=== PATIENT | male | born 1980 | race Caucasian/White ===

== ENCOUNTER 2017-09-19 09:47 | Emergency (ER) | payer BC, OTHER ==
[2017-09-19] MEDS ORDERED: Glucagon* 1 MG VIAL IM ONE (10:12)
[2017-09-19] MEDS ORDERED: Sucralfate TAB* 1 GM PO ONE (10:59)
--- NOTE | 2017-09-19 11:20 | ED ---
Throat Pain/Nasal Congestion - HPI Summary HPI Summary: Patient is an otherwise healthy 37-year-old male presenting to the ED with complaint of esophageal food bolus since last evening. He states he choked on a piece of steak last evening, was able to vomit and spit the piece up at the time but still has been unable to swallow any solid food since that time. He states he did not sleep well due to the stuck feeling and having to spit frequently throughout the night. He comes in today to the ED stating the steak appears to still be lodged in the throat. This is never happened before. Denies any other complaints. - History of Current Complaint Chief Complaint: EDForeignBodyEsophag Time Seen by Provider: 09/19/17 09:59 Hx Obtained From: Patient, Family/Church Musician Onset/Duration: Sudden Onset Severity: Mild Associated Signs And Symptoms: Positive: Dysphagia, FB Sensation, Drooling - only slightly - Epiglottits Risk Factors Epiglottis Risk Factors: Drooling - Allergies/Home Medications Allergies/Adverse Reactions: Allergies Allergy/AdvReac Type Severity Reaction Status Date / Time No Known Allergies Allergy Verified 09/19/17 09:59 Home Medications: Home Medications Fish Oil 1,000 mg Capsule 1,000 mg PO DAILY 09/19/17 [History Confirmed 09/19/17 ] Lisinopril 10 mg PO DAILY 09/19/17 [History Confirmed 09/19/17] Multivitamin 1 tab PO DAILY 09/19/17 [History Confirmed 09/19/17] Niacin Flush Free 500 mg Cap 500 mg PO DAILY 09/19/17 [History Confirmed ] PMH/Surg Hx/FS Hx/Imm Hx Previously Healthy: Yes - Immunization History Hx Pertussis Vaccination: No Immunizations Up to Date: Yes Infectious Disease History: No Infectious Disease History: Denies: Traveled Outside the [place] in Last 30 Days - Social History Occupation: Employed Full-time Lives: With Family Alcohol Use: Rare Substance Use Type: Reports: None Smoking Status (MU): Never Smoked Tobacco Review of Systems Constitutional: Negative Negative: Fever, Fatigue, Skin Diaphoresis Negative: Photophobia, Blurred Vision Positive: Sore Throat Cardiovascular: Negative Respiratory: Negative Positive: Vomiting. Negative: Abdominal Pain, Diarrhea, Nausea Genitourinary: Negative Positive: no symptoms reported, see HPI Skin: Negative Neurological: Negative All Other Systems Reviewed And Are Negative: Yes Physical Exam Triage Information Reviewed: Yes Vital Signs On Initial Exam: Initial Vitals Temp Pulse Resp BP Pulse Ox 98.1 F 65 16 132/84 100 09/19/17 09:59 09/19/17 09:59 09/19/17 09:59 09/19/17 09:59 09/19/17 09:59 Vital Signs Reviewed: Yes Appearance: Positive: Well-Appearing, Well-Nourished Skin: Positive: Warm, Skin Color Reflects Adequate Perfusion Head/Face: Positive: Normal Head/Face Inspection Eyes: Positive: EOMI, DELMA, Conjunctiva Clear ENT: Positive: Pharynx normal, Uvula midline. Negative: Nasal congestion, Nasal drainage, Tonsillar swelling, Tonsillar exudate, Hoarse voice, Sinus tenderness Neck: Positive: Supple, No Lymphadenopathy Respiratory/Lung Sounds: Positive: Clear to Auscultation, Breath Sounds Present Cardiovascular: Positive: RRR, Pulses are Symmetrical in both Upper and Lower Extremities Musculoskeletal: Positive: Normal, Strength/ROM Intact Neurological: Positive: Sensory/Motor Intact, Alert, Oriented to Person Place, Time, Speech Normal Psychiatric: Positive: Normal, Affect/Mood Appropriate AVPU Assessment: Alert Diagnostics - Vital Signs Vital Signs Temp Pulse Resp BP Pulse Ox 09/19/17 10:18 64 17 97 09/19/17 09:59 98.1 F 65 16 132/84 100 - Laboratory Result Diagrams: 09/19/17 12:25 09/19/17 12:25 Lab Statement: Any lab studies that have been ordered have been reviewed, and results considered in the medical decision making process. EENT Course/Dx - Course Course Of Treatment: On physical examination, there does not appear to be in obvious food bolus in the posterior pharynx. He states he is able to get very small amount of liquids down, but will often have to spit most of the liquid in his mouth out due to inability to swallow. He appears in no acute distress on arrival. He is not leaning forward or vomiting. Glucagon 1 mg IM given. Carafate mixed with water given. He was not able to tolerate, stating some of the carafate went down, but then he vomited it up approximately 3 minutes later. Continues to be able to swallow saliva, but slowly. Discussed case with Dr. Leyva. Dr. Leyva suggests IV, chest x-ray and lab work and will come in to scope patient. Patient made aware and is okay with this plan. - Diagnoses Provider Diagnoses: Esophageal stricture Discharge - Sign-Out/Discharge Documenting (check all that apply): Discharge/Admit/Transfer Signing out patient TO: Byron Leyva - Discharge Plan Condition: Stable Disposition: HOME Referrals: Renae Jaffe NP [Primary Care Provider] - - Billing Disposition and Condition Condition: STABLE Disposition: Home
[2017-09-19 12:33] LABS: ABS Basophils 0.1 10^3/ul (0-0.2); ABS Eosinophils 0.2 10^3/ul (0-0.6); ABS Lymphocytes 1.2 10^3/ul (1.0-4.8); ABS Neutrophils 12.3 10^3/ul (1.5-7.7); ABS Nucleated RBC 0 10^3/ul; Eosinophil % 1.4 % (0-6); Hematocrit 41 % (42-52); Hemoglobin 14.6 g/dl (14.0-18.0); Lymphocyte % 8.1 % (25-47); Mean Corpuscular HGB Conc 36 g/dl (31-36); Mean Corpuscular Hemoglobin 33 pg (27-31); Mean Corpuscular Volume 92 fL (80-94); Mean Platelet Volume 8.8 um3 (7.4-10.4); Nucleated Red Blood Cells % 0; Platelet Count 186 10^3/ul (150-450); Red Cell Distribution Width 13 % (10.5-15); White Blood Count 14.7 10^3/ul (3.5-10.8)
[2017-09-19 12:41] LABS: INR 0.94 (0.77-1.02)
[2017-09-19 12:49] LABS: EGFR Non-African American 79.5 (>60)
--- NOTE | 2017-09-19 13:29 | RAD ---
INDICATION: Food foreign body COMPARISON: None TECHNIQUE: PA and lateral dual-energy views were obtained. FINDINGS: Bones/Soft Tissues: There are no acute bony findings. Cardiomediastinal: The cardiomediastinal silhouette is normal. Lungs: There are no infiltrates. Pleura: There are no pleural effusions. Other: There is a paucity of gas in the visualized abdomen IMPRESSION: NO ACTIVE DISEASE.
[2017-09-19] MEDS ORDERED: fentaNYL* 50 MCG/ML 2 ML VIAL (100 MCG VIAL) ONE ×2 (13:33→17:28)
[2017-09-19] MEDS ORDERED: Midazolam* 1 MG/ML 10 ML VIAL (10 MG) ONE (13:33)
[2017-09-19 16:55] VITALS: BP 125/75
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
--- NOTE | 2017-09-20 03:04 | PRO ---
DATE: 09/19/17 - EMERGENCY DEPT. REFERRING PHYSICIAN: Renae Jaffe NP, [facility].* PROCEDURE: Upper gastrointestinal endoscopy and removal of impacted meat with biopsy of esophagus at 35 cm and CLOtest from gastric greater curvature. INDICATION: This 37-year-old man has had a piece of steak stuck for about 18 hours. He has not had any fever. With his present, his situation was discussed and informed consent reviewed. ENDOSCOPIST: Dr. Leyva. MEDICATIONS: Midazolam 10, fentanyl 100. FINDINGS: He is a minimally overweight, red-haired young man in no distress. EGD: Larynx - symmetric limited views. Esophagus - easily entered and mucosa is normal in the upper esophagus. There has been a lot of retained saliva and a large piece of meat in the lower esophagus. It was clearly stuck. Blunt advancement was not easily obtained. A snare was passed and took off about one third of the impaction which remains stuck in the EG junction. It was withdrawn through the mouth. The patient was reintubated. At this point, the piece of meat popped through into the gastric fundus. There was an open EG junction at 39.5 to 40 with a mild ring and a medium sized hiatal hernia. There were no inflamed erosions in the esophagus. There did appear to be furrowing in the esophagus and during withdrawal biopsies were taken x3 from about 34 to 35. Stomach - generally normal mucosa in the cardia, fundus, body, and antrum. There was a smooth nodule along the greater curvature of proximal antrum consistent with a pancreatic rest. It was small, smooth, uniform and had no worrisome features whatsoever. Only a small patch of gastric fundus was not viewed secondary to fragments of the meat bolus. No erosions were seen. A CLOtest taken. Duodenum - the pylorus, bulb, and second portions were normal. IMPRESSION: 1. Esophageal furrowing - biopsies pending. 2. Minimal EG junction stricture - omeprazole 20 mg for a week and then further plans to be discussed. 3. [id number] hiatal hernia. 4. Meat bolus - 90% of the causation of today's event was the lack of chewing of a large piece of meat. [id number]/[facility] #: [id number] [facility]
== END 2017-09-19 16:53 | disposition home or self-care (01) ==
LOC: ED 09:47
DX: T18.128A Food in esophagus causing other injury, initial encounter (principal); X58.XXXA Exposure to other specified factors, initial encounter; Y92.9 Unspecified place or not applicable; K22.2 Esophageal obstruction; K44.9 Diaphragmatic hernia without obstruction or gangrene
CPT/HCPCS: 36415; 71046; 80053; 83605; 85025; 85610; 87077; 88305; 96372; 99156; 99157; 99284; A9270-GY; J1610; J2250; J3010

== ENCOUNTER 2017-12-07 01:38 | Emergency (ER) | payer BC ==
[2017-12-07] MEDS ORDERED: Pantoprazole IV* 40 MG IV ONE (01:56)
[2017-12-07] MEDS ORDERED: NS 0.9% 1000 ML* 1,000 ML IV ONE (01:56)
[2017-12-07] MEDS ORDERED: Metoclopramide IV* 5 MG/ML 2 ML VIAL IV SLOW PU ONE (01:57)
--- NOTE | 2017-12-07 02:00 | ED ---
Abdominal Pain/Male - HPI Summary HPI Summary: A 37 y/o male accompanied by family ELOISA presents to ED c/o lower abdominal pain reaching 5/10 in severity. In the ED room, the patient has a pulse of 52 BPM, O2 saturation of 95% and blood pressure of 120/69. As per triage, "Pt, who is being followed by Dr Leyva, states that he was woken up out of a sound sleep with lower abdominal pain, that he attributed to acid reflux. Pt states that he induced vomiting and felt relief, but that the pain and nausea is now returning". According to the patient, he has been experiencing lower abdominal pain since 1300 this afternoon. The pain is coupled with vomiting and diarrhea. He noted that he is in much discomfort rather than pain. Patiient takes Prilozec and Lisinopril home. - History of Current Complaint Chief Complaint: EDAbdPain Stated Complaint: ABD PAIN Time Seen by Provider: 12/07/17 01:40 Hx Obtained From: Patient Onset/Duration: Sudden Onset, Lasting Hours, Still Present Timing: Constant Severity Initially: Moderate Severity Currently: Moderate Pain Intensity: 5 Pain Scale Used: 0-10 Numeric Location: Other - Lower Radiates: No Aggravating Factor(s): Nothing Alleviating Factor(s): Nothing Associated Signs And Symptoms: Positive: Vomiting, Diarrhea - Allergies/Home Medications Allergies/Adverse Reactions: Allergies Allergy/AdvReac Type Severity Reaction Status Date / Time No Known Allergies Allergy Verified 09/19/17 09:59 Home Medications: Home Medications Omeprazole 20 mg PO DAILY 12/07/17 [History Confirmed 12/07/17] PMH/Surg Hx/FS Hx/Imm Hx Endocrine/Hematology History: Denies: Hx Diabetes Cardiovascular History: Reports: Hx Hypertension - Surgical History Surgery Procedure, Year, and Place: As per mother and father, no prior surgeries noted. Infectious Disease History: No Infectious Disease History: Denies: Traveled Outside the [place] in Last 30 Days - Family History Known Family History: Positive: Hypertension Negative: Diabetes - Social History Alcohol Use: Rare Substance Use Type: Reports: None Smoking Status (MU): Never Smoked Tobacco Review of Systems Negative: Fever Positive: Abdominal Pain, Vomiting, Diarrhea All Other Systems Reviewed And Are Negative: Yes Physical Exam - Summary Physical Exam Summary: VITAL SIGNS: Reviewed. GENERAL: Patient is a well-developed and nourished male who is lying comfortable in the stretcher. Patient is not in any acute respiratory distress. HEAD AND FACE: No signs of trauma. No ecchymosis, hematomas or skull depressions. No sinus tenderness. EYES: PERRLA, EOMI x 2, No injected conjunctiva, no nystagmus. EARS: Hearing grossly intact. Ear canals and tympanic membranes are within normal limits. MOUTH: Oropharynx within normal limits. NECK: Supple, trachea is midline, no adenopathy, no JVD, no carotid bruit, no c- spine tenderness, neck with full ROM. CHEST: Symmetric, no tenderness at palpation LUNGS: Clear to auscultation bilaterally. No wheezing or crackles. CVS: Regular rate and rhythm, S1 and S2 present, no murmurs or gallops appreciated. ABDOMEN: Soft, diffuse abdominal tenderness. No signs of distention. No rebound no guarding, and no masses palpated. Bowel sounds are normal. EXTREMITIES: FROM in all major joints, no edema, no cyanosis or clubbing. NEURO: Alert and oriented x 3. No acute neurological deficits. Speech is normal and follows commands. SKIN: Dry and warm Triage Information Reviewed: Yes Vital Signs On Initial Exam: Initial Vitals Temp Pulse Resp BP Pulse Ox 97.8 F 53 18 120/69 96 12/07/17 01:47 12/07/17 01:47 12/07/17 01:47 12/07/17 01:47 12/07/17 01:47 Vital Signs Reviewed: Yes Diagnostics - Vital Signs Vital Signs Temp Pulse Resp BP Pulse Ox 12/07/17 01:47 97.8 F 53 18 120/69 96 - Laboratory Result Diagrams: 12/07/17 02:25 12/07/17 02:25 Lab Statement: Any lab studies that have been ordered have been reviewed, and results considered in the medical decision making process. - CT CT A/P CT Interpretation Completed By: Radiologist - 1. There are prominent loops of small bowel noted, findings may be seen with enteritis. 2. There is a small gallstone noted within the gallbladder. Right upper quadrant sonography may be performed for further evaluation. ED physician reviewed this radiology report. Re-Evaluation - Re-Evaluation First Eval Re-Evaluation Time: 05:08 Comment: Reviewed CAT scan results with patient. Abdominal Pain Fem Course/Dx - Course Course Of Treatment: A 37 y/o male accompanied by family BIBA presents to ED c/ o lower abdominal pain reaching 5/10 in severity. In the ED room, the patient has a pulse of 52 BPM, O2 saturation of 95% and blood pressure of 120/69. A CT A /P revealed 1. There are prominent loops of small bowel noted, findings may be seen with enteritis. 2. There is a small gallstone noted within the gallbladder. Right upper quadrant sonography may be performed for further evaluation. In the ED course, the patient recieved. Reglan, Omnipaque, Protonix and IV fluids. During reevaluation, CAT scan results were discussed with patient, in which it was recommended that patient should follow up with PCP for an US to r/o gallstones. Patient will be discharged with a diagnosis of abdominal pain. Patient is to follow up with PCP in 1-2 days for an US to r/o gallstones. Patient is agreeable with this plan. - Diagnoses Provider Diagnoses: Abdominal pain Discharge - Sign-Out/Discharge Documenting (check all that apply): Patient Departure - DISCHARGE - Discharge Plan Condition: Stable Disposition: HOME Patient Education Materials: Abdominal Pain (ED), Acute Nausea and Vomiting (ED ) Referrals: Renae Jaffe NP [Primary Care Provider] - 2 Days Additional Instructions: FOLLOW UP WITH PRIMARY CARE FOR ULTRASOUND TO RULE OUT GALLSTONES. RETURN TO ED FOR ANY NEW OR WORSENING SYMPTOMS. - Attestation Statements Document Initiated by Scribe: Yes Documenting Scribe: Christopher Kinney Provider For Whom Scribe is Documenting (Include Credential): Eduar Medina MD Scribe Attestation: Chrsitopher Tee, scribed for Eduar Medina MD on 12/07/17 at 0516.
[2017-12-07 02:34] LABS: ABS Basophils 0.1 10^3/ul (0-0.2); ABS Eosinophils 0.2 10^3/ul (0-0.6); ABS Lymphocytes 2.4 10^3/ul (1.0-4.8); ABS Monocytes 1.3 10^3/ul (0-0.8); ABS Neutrophils 10.4 10^3/ul (1.5-7.7); ABS Nucleated RBC 0 10^3/ul; Eosinophil % 1.6 % (0-6); Hematocrit 42 % (42-52); Hemoglobin 14.8 g/dl (14.0-18.0); Lymphocyte % 16.5 % (25-47); Mean Corpuscular HGB Conc 35 g/dl (31-36); Mean Corpuscular Hemoglobin 33 pg (27-31); Mean Corpuscular Volume 93 fL (80-94); Mean Platelet Volume 9.2 um3 (7.4-10.4); Nucleated Red Blood Cells % 0; Platelet Count 203 10^3/ul (150-450); Red Blood Count 4.56 10^6/ul (4.00-5.40); Red Cell Distribution Width 13 % (10.5-15); White Blood Count 14.4 10^3/ul (3.5-10.8)
[2017-12-07 02:42] LABS: INR 0.92 (0.77-1.02)
[2017-12-07] MEDS ORDERED: Iohexol 300* (CONTRAST) 10 ML SDV IV ONE (02:57)
--- NOTE | 2017-12-07 04:39 | RAD ---
EXAM: CT Abdomen and Pelvis With Intravenous Contrast CLINICAL HISTORY: 37 years old, male; Pain; Abdominal pain; Localized; Lower; Additional info: Pt states that he was woken up out of a sound sleep with lower abdominal pain, that he attributed to acid reflux. Pt states that he induced vomiting and felt relief, but that the pain and nausea is now returning. TECHNIQUE: Axial computed tomography images of the abdomen and pelvis with intravenous contrast. All CT scans at this facility use at least one of these dose optimization techniques: automated exposure control; mA and/or kV adjustment per patient size (includes targeted exams where dose is matched to clinical indication); or iterative reconstruction. Coronal and sagittal reformatted images were created and reviewed. CONTRAST: 131 mL of OMNI 300 administered intravenously. COMPARISON: No relevant prior studies available. FINDINGS: Lung bases: Unremarkable. No mass. No consolidation. ABDOMEN: Liver: Unremarkable. No mass. Gallbladder and bile ducts: There is a small gallstone noted within the gallbladder. No ductal dilation. Pancreas: Unremarkable. No mass. No ductal dilation. Spleen: Unremarkable. No splenomegaly. Adrenals: Unremarkable. No mass. Kidneys and ureters: Unremarkable. No solid mass. No hydronephrosis. Stomach and bowel: There are prominent loops of small bowel noted, findings may be seen with enteritis. No obstruction. PELVIS: Appendix: The appendix is visualized and is unremarkable. Bladder: Unremarkable. No mass. Reproductive: Unremarkable as visualized. ABDOMEN and PELVIS: Intraperitoneal space: Unremarkable. No free air. No significant fluid collection. Bones/joints: No acute fracture. No dislocation. Soft tissues: Unremarkable. Vasculature: Unremarkable. No abdominal aortic aneurysm. Lymph nodes: Unremarkable. No enlarged lymph nodes. IMPRESSION: 1. There are prominent loops of small bowel noted, findings may be seen with enteritis. 2. There is a small gallstone noted within the gallbladder. Right upper quadrant sonography may be performed for further evaluation.
[2017-12-07 05:05] LABS: Urine Appearance Clear; Urine Blood Negative (Negative); Urine Color Yellow; Urine Ketones Negative (Negative); Urine Protein Negative (Negative); Urine Specific Gravity 1.044 (1.010-1.030); Urine Urobilinogen Negative (Negative)
[2017-12-07 05:35] VITALS: BP 89/51
== END 2017-12-07 05:37 | disposition home or self-care (01) ==
LOC: ED 01:38
DX: R11.10 Vomiting, unspecified (principal); R19.7 Diarrhea, unspecified; R10.30 Lower abdominal pain, unspecified; I10 Essential (primary) hypertension
CPT/HCPCS: 36415; 74177; 80053; 81003; 82150; 83690; 85025; 85610; 85730; 86140; 96374; 96375; 99283; J2765; Q9967

== ENCOUNTER 2018-04-04 17:01 | Emergency (ER) | payer BC ==
[2018-04-04 17:36] VITALS: BP 158/91
--- NOTE | 2018-04-04 17:48 | UC ---
Throat Pain/Nasal Slava HPI - HPI Summary HPI Summary: 37-year-old male comes to clinic with a chief complaint of upper respiratory tract infection symptoms for about 2 and half weeks. He's had initially runny nose sore throat cough chest congestion. Over time the chest congestion is clear. Sinuses now her giving him pressure he's got yellow rhinorrhea. Timblin warm today did not check if he had a fever but he might half. Cbji-aib-abklymc medications help the symptoms but then everything gets worse again. - History of Current Complaint Chief Complaint: UCGeneralIllness Stated Complaint: RESP COMPLAINT Time Seen by Provider: 04/04/18 17:41 Pain Intensity: 0 - Allergies/Home Medications Allergies/Adverse Reactions: Allergies Allergy/AdvReac Type Severity Reaction Status Date / Time No Known Allergies Allergy Verified 04/04/18 17:36 PMH/Surg Hx/FS Hx/Imm Hx Previously Healthy: Yes - Surgical History Surgical History: Yes Surgery Procedure, Year, and Place: [facility] Jan 2018 - Family History Known Family History: Positive: Hypertension Negative: Diabetes - Social History Alcohol Use: Rare Substance Use Type: None Smoking Status (MU): Never Smoked Tobacco Review of Systems All Other Systems Reviewed And Are Negative: Yes Constitutional: Positive: Fever Skin: Positive: Negative Eyes: Positive: Negative ENT: Positive: Nasal Discharge, Sinus Congestion, Sinus Pain/Tenderness Respiratory: Positive: Cough Cardiovascular: Positive: Negative Gastrointestinal: Positive: Negative Motor: Positive: Negative Neurovascular: Positive: Negative Musculoskeletal: Positive: Negative Neurological: Positive: Negative Psychological: Positive: Negative Is Patient Immunocompromised?: No Physical Exam Triage Information Reviewed: Yes Appearance: No Pain Distress, Well-Nourished, Ill-Appearing - MILD Vital Signs: Initial Vital Signs Temp 99.5 F 04/04/18 17:32 Pulse 97 04/04/18 17:32 Resp 18 04/04/18 17:32 BP 158/91 04/04/18 17:32 Pulse Ox 100 04/04/18 17:32 Vital Signs Reviewed: Yes Eye Exam: Normal Eyes: Positive: Conjunctiva Clear ENT: Positive: Pharyngeal erythema, Nasal congestion, Nasal drainage, TMs normal Neck exam: Normal Neck: Positive: Supple Respiratory: Positive: Lungs clear, Normal breath sounds, No respiratory distress Cardiovascular: Positive: RRR Musculoskeletal Exam: Normal Musculoskeletal: Positive: Strength Intact, ROM Intact Neurological Exam: Normal Neurological: Positive: Alert, Muscle Tone Normal Psychological Exam: Normal Psychological: Positive: Age Appropriate Behavior Skin Exam: Normal Throat Pain/Nasal Course/Dx - Differential Dx/Diagnosis Provider Diagnosis: Sinusitis Discharge - Sign-Out/Discharge Documenting (check all that apply): Patient Departure All imaging exams completed and their final reports reviewed: No Studies - Discharge Plan Condition: Stable Disposition: HOME Prescriptions: Amoxicillin/Clavulanate TAB* [Augmentin TAB 875*] 875 mg PO BID #20 tab Patient Education Materials: Sinusitis (ED) Referrals: Renae Jaffe NP [Primary Care Provider] - Additional Instructions: FOLLOW UP WITH YOUR DOCTOR IF NOT COMPLETELY IMPROVED. GET RECHECKED FOR ANY WORSENING OF YOUR CONDITION OR QUESTIONS OR CONCERNS. - Billing Disposition and Condition Condition: STABLE Disposition: Home
== END 2018-04-04 18:01 | disposition home or self-care (01) ==
LOC: UCEAST 17:01
DX: J32.9 Chronic sinusitis, unspecified (principal); J02.9 Acute pharyngitis, unspecified
CPT/HCPCS: 99212; G0463

== ENCOUNTER 2018-12-31 09:24 | Emergency (ER) | payer BC ==
[2018-12-31] MEDS ORDERED: NS 0.9% 1000 ML** 1,000 ML IV ONE (09:27)
--- NOTE | 2018-12-31 09:42 | ED ---
Syncope/Near Syncope - HPI Summary HPI Summary: The patient is a 38 y/o M presenting to [facility] accompanied by with a chief complaint of sudden onset syncopal event with loss of consciousness this morning. He reports that he had woken up to his dogs fighting, and he attempted to break them up, but he cut his hand, although he isnt sure if it was on a tooth or a toenail. He then went to get a paper towel from the kitchen, when he walked only about 15 feet and crumpled to the floor, per . He states that he had loss of consciousness with the event as he did not remember falling to the floor, where he landed on his buttocks but did hit his head. He additionally c/o diaphoresis and skin changes of various colors that has since resolved. He denies any headache, dizziness, shortness of breath, chest pain, or palpitations prior to or after the event. Currently, he feels back at baseline with pain rated at 3/10 in severity. Unsure if UTD on tetanus, but he notes he had surgery last year. PMHx: HTN, cholecystectomy. Nonsmoker, rare EtOH , no substance use. Medications reviewed. Allergies noted. - History Of Current Complaint Time Seen by Provider: 12/31/18 09:25 Hx Obtained From: Patient Onset/Duration: Sudden Onset, Lasting Minutes, Resolved Timing: Minutes Context: Witnessed Activity At Onset: Exertion - ambulating Associated Head Trauma: No Aggravating Factor(s): Nothing Alleviating Factor(s): Spontaneous Resolution Associated Signs And Symptoms: Other - Positive: loss of consciousness, laceration to the left hand, diaphoresis, skin changes of various colors ( resolved). Negative: headache, dizziness, shortness of breath, chest pain, palpitations - Allergies/Home Medications Allergies/Adverse Reactions: Allergies Allergy/AdvReac Type Severity Reaction Status Date / Time No Known Allergies Allergy Verified 04/04/18 17:36 PMH/Surg Hx/FS Hx/Imm Hx Endocrine/Hematology History: Denies: Hx Diabetes, Hx Thyroid Disease Cardiovascular History: Reports: Hx Hypertension Denies: Hx Hypercholesterolemia Respiratory History: Denies: Hx Asthma, Hx Chronic Obstructive Pulmonary Disease (COPD) GI History: Reports: Hx Gall Bladder Disease - cholecystectomy Denies: Hx Ulcer History: Denies: Hx Renal Disease - Surgical History Surgical History: Yes Surgery Procedure, Year, and Place: [facility] Jan 2018 Infectious Disease History: No Infectious Disease History: Denies: Hx Hepatitis, Hx Human Immunodeficiency Virus (HIV), Traveled Outside the [place] in Last 30 Days - Family History Known Family History: Positive: Hypertension Negative: Diabetes - Social History Alcohol Use: Rare Hx Substance Use: No Substance Use Type: Reports: None Hx Tobacco Use: No Smoking Status (MU): Never Smoked Tobacco Review of Systems Positive: Skin Diaphoresis, Other - variations in skin color (resolved) Negative: Palpitations, Chest Pain Negative: Shortness Of Breath Positive: Other - laceration to the right hand Neurological: Other - Negative: dizziness Positive: Syncope - with LOC, hit head. Negative: Headache All Other Systems Reviewed And Are Negative: Yes Physical Exam - Summary Physical Exam Summary: VITAL SIGNS: Reviewed. GENERAL: Patient is a well-developed and nourished male who is lying comfortable in the stretcher. Patient is not in any acute respiratory distress. HEAD AND FACE: No signs of trauma. No ecchymosis, hematomas or skull depressions. No sinus tenderness. EYES: PERRLA, EOMI x 2, No injected conjunctiva, no nystagmus. No photophobia. EARS: Hearing grossly intact. Ear canals and tympanic membranes are within normal limits. MOUTH: Oropharynx within normal limits. NECK: Supple, trachea is midline, no adenopathy, no JVD, no carotid bruit, no c- spine tenderness, neck with full ROM. No meningeal signs, no Kernig's or brudzinskis signs. CHEST: Symmetric, no tenderness at palpation. LUNGS: Clear to auscultation bilaterally. No wheezing or crackles. CVS: Regular rate and rhythm, S1 and S2 present, no murmurs or gallops appreciated. ABDOMEN: Soft, non-tender. No signs of distention. No rebound, no guarding, and no masses palpated. Bowel sounds are normal. EXTREMITIES: Small laceration on the right hand which is approximately 0.5 cm, FROM in all major joints, no edema, no cyanosis or clubbing. NEURO: Alert and oriented x 3. No acute neurological deficits. Speech is normal and follows commands. SKIN: Dry and warm. GCS: 15. Triage Information Reviewed: Yes Vital Signs On Initial Exam: Initial Vitals Temp Pulse Resp BP Pulse Ox 97.9 F 60 18 112/64 98 12/31/18 09:28 12/31/18 09:28 12/31/18 09:28 12/31/18 09:28 12/31/18 09:28 Vital Signs Reviewed: Yes - [place] Coma Scale Best Eye Response: 4 - Spontaneous Best Motor Response: 6 - Obeys Commands Best Verbal Response: 5 - Oriented Coma Scale Total: 15 Procedures - Sedation Patient Received Moderate/Deep Sedation with Procedure: No - Laceration/Wound Repair 1 Location: upper extremity - right hand Description: Linear Length, Depth and Shape: 0.5 cm Laceration/Wound Explored: clean Closure: [employer] Diagn[facility] - Vital Signs Vital Signs Temp Pulse Resp BP Pulse Ox 12/31/18 09:28 97.9 F 60 18 112/64 98 - Laboratory Result Diagrams: 12/31/18 10:02 12/31/18 10:02 Lab Statement: Any lab studies that have been ordered have been reviewed, and results considered in the medical decision making process. - Radiology Chest X-ray Radiology Interpretation Completed By: Radiologist Summary of Radiographic Findings: Impression: No evidence for acute intrathoracic disease. ED physician has reviewed this report. - CT Brain CT CT Interpretation Completed By: Radiologist Summary of CT Findings: Impression: No evidence for acute intrathoracic disease. ED physician has reviewed this report. - EKG 1040 Cardiac Rate: Bradycardia - 57 bpm EKG Rhythm: Sinus Bradycardia Summary of EKG Findings: EKG at 1040 reveals sinus bradycardia at 57 BPM. Normal axis. No ST elevations. ED physician has reviewed and interpreted this EKG. Re-Evaluation - Re-Evaluation First Eval Re-Evaluation Time: 10:46 Change: Unchanged Comment: We discussed all results and plan for discharge. Course/Dx Assessment/Plan: Patient is a 38 y/o M with chief complaint of syncopal episode with loss of consciousness, head to floor contact, diaphoresis, and skin color changes occurring this morning after sustaining a laceration the left hand without any headache, dizziness, shortness of breath, chest pain, or palpitations. Blood work without a significant abnormality except for creatinine 1.19, glucose 109, lactic acid 2.3, and troponin 0.00. Serum alcohol negative. Head CT impression: Negative unenhanced CT of the head. Chest x-ray impression: No evidence for acute intrathoracic disease. EKG: Sinus bradycardia at 57 bpm, no ST elevations. I believe that the patient had a vasovagal syncope. In the ED course the patient has remained stable. I gave the patient Augmentin since the patient had a small laceration in the right hand. At this time, it is unknown if it was the teeth of the dog that caused the laceration. Patient had tetanus vaccine a year ago. At this point, I discussed all the findings and test results with the patient. He was instructed to return to the emergency room immediately if any of the symptoms return or worsen. Patient understands and agrees. Neurological exam before discharge: Patient is alert and oriented x 3. No acute neurological deficits. Patient's vital signs are stable. Patient is to follow up with PCP in the next 2 3 days. They understand and agree. Plan of care was discussed with the patient and patient understands and agrees with the plan of care. All questions were answered at patient satisfaction. There were no further complaints or concerns. - Diagnoses Provider Diagnoses: Vasovagal episode, Laceration Discharge ED - Sign-Out/Discharge Documenting (check all that apply): Patient Departure - Patient will be discharged home. - Discharge Plan Condition: Good Disposition: HOME Prescriptions: Amoxicillin/Clavulanate TAB* [Augmentin TAB 875*] 875 mg PO BID #20 tab Patient Education Materials: Laceration (DC), Syncope (DC) Referrals: Renae Jaffe NP [Primary Care Provider] - 3 Days Additional Instructions: Please take medications as prescribed. Follow up with your primary care provider in 2-3 days. Return to the emergency department for any new or worsening symptoms. - Billing Disposition and Condition Condition: GOOD Disposition: Home - Attestation Statements Document Initiated by Bridget: Yes Documenting Scribe: Erin Webster Provider For Whom Bridget is Documenting (Include Credential): Dr. Brayan Painter MD Scribe Attestation: Erin Tee scribed for Dr. Brayan Painter MD on 01/01/19 at 0902. Scribe Documentation Reviewed: Yes Provider Attestation: The documentation as recorded by the Erin clark accurately reflects the service I personally performed and the decisions made by me, Dr. Brayan Painter MD Status of Scribe Document: Viewed
[2018-12-31 10:12] LABS: ABS Eosinophils 0.2 10^3/ul (0-0.6); ABS Lymphocytes 1.3 10^3/ul (1.0-4.8); ABS Monocytes 0.6 10^3/ul (0-0.8); Eosinophil % 3.2 %; Hematocrit 42 % (42-52); Hemoglobin 14.8 g/dL (14.0-18.0); Lymphocyte % 17.6 %; Mean Corpuscular HGB Conc 35 g/dL (31-36); Mean Corpuscular Hemoglobin 32 pg (27-31); Mean Corpuscular Volume 92 fL (80-94); Mean Platelet Volume 8.6 fL (7.4-10.4); Nucleated Red Blood Cells % 0.1; Platelet Count 189 10^3/uL (150-450); Red Cell Distribution Width 13 % (10-15); White Blood Count 7.1 10^3/uL (3.5-10.8)
[2018-12-31 10:26] LABS: ALT 25 U/L (7-52); AST 23 U/L (13-39); Albumin 4.7 g/dL (3.2-5.2); Alkaline Phosphatase 54 U/L (34-104); Anion Gap 6 mmol/L (2-11); BUN/Creatinine Ratio 13.4 (8-20); Blood Urea Nitrogen 16 mg/dL (6-24); CO2 Carbon Dioxide 28 mmol/L (22-32); Calcium 9.6 mg/dL (8.6-10.3); Chloride 106 mmol/L (101-111); Creatine Kinase 133 U/L (10-223); EGFR African American 82.8 (>60); EGFR Non-African American 68.4 (>60); Globulin 2.4 g/dL (2-4); Glucose 109 mg/dL (70-100); Potassium 4.5 mmol/L (3.5-5.0); Sodium 140 mmol/L (135-145); Total Protein 7.1 g/dL (6.4-8.9)
[2018-12-31 10:30] LABS: Alcohol < 10 mg/dL (<10)
[2018-12-31 10:38] VITALS: BP 116/76
[2018-12-31] MEDS ORDERED: Amoxicillin/Clavulanate TAB* 875 MG PO ONE (10:44)
[2018-12-31 10:45] LABS: TSH (Thyroid Stimulating Horm) 2.26 mcIU/mL (0.34-5.60)
== END 2018-12-31 10:57 | disposition home or self-care (01) ==
LOC: ED 09:24
DX: R55 Syncope and collapse (principal); S61.412A Laceration without foreign body of left hand, initial encounter; W19.XXXA Unspecified fall, initial encounter; Y92.000 Kitchen of unspecified non-institutional (private) residence as the place of occurrence of the external cause; I10 Essential (primary) hypertension; Z90.49 Acquired absence of other specified parts of digestive tract; Z79.899 Other long term (current) drug therapy
CPT/HCPCS: 12002; 36415; 70450; 71046; 80053; 80320; 82550; 83605; 83735; 83880; 84443; 84484; 85025; 93005; 96360; 99282; A9270-GY; G0480

== ENCOUNTER 2019-06-27 21:51 | Emergency (ER) | payer BC ==
--- NOTE | 2019-06-27 22:34 | ED ---
Respiratory - HPI Summary HPI Summary: 38 year old M presenting to [facility] with a chief complaint of shortness of breath which he describes as feeling like he cannot catch his breath or take a complete breath since 13:00 this afternoon while playing with his kids outside, worse since laying down for bed. Patient also reports intermittent chest discomfort which he describes as a tightness. The patient rates the pain 0/10 in severity. Patient denies any fever, syncope, dizziness, lightheadedness, or cough. Medication list reviewed. Allergy list reviewed. - History of Current Complaint Chief Complaint: EDShortnessOfBreath Stated Complaint: SOB PER PT Time Seen by Provider: 06/27/19 22:07 Hx Obtained From: Patient Onset/Duration: Lasting Hours Timing: Constant Current Severity: None Pain Intensity: 0 Associated Signs and Symptoms: Negative - Fever, syncope, dizziness, lightheadedness, cough, Chest Pain - Discomfort - Allergy/Home Medications Allergies/Adverse Reactions: Allergies Allergy/AdvReac Type Severity Reaction Status Date / Time No Known Allergies Allergy Verified 06/27/19 22:19 Home Medications: Home Medications Multivitamin [Multiple Vitamins] 1 tab PO DAILY WITH MEAL 09/19/17 [History Confirmed 06/27/19] Omeg3/Epa/Dha/Fish Oil/Flax/E [Thera Tears Nutrition Capsule] 1 cap PO DAILY [History Confirmed 06/27/19] Omeprazole 40 mg PO DAILY WITH MEAL 12/07/17 [History Confirmed 06/27/19] amLODIPine TAB* [Norvasc 5 mg TAB*] 20 mg PO DAILY 06/27/19 [History Confirmed 06/27/19] PMH/Surg Hx/FS Hx/Imm Hx Endocrine/Hematology History: Denies: Hx Diabetes, Hx Thyroid Disease Cardiovascular History: Reports: Hx Hypertension Denies: Hx Hypercholesterolemia Respiratory History: Denies: Hx Asthma, Hx Chronic Obstructive Pulmonary Disease (COPD) GI History: Reports: Hx Gall Bladder Disease - cholecystectomy Denies: Hx Ulcer History: Denies: Hx Renal Disease - Surgical History Surgery Procedure, Year, and Place: [facility] Jan 2018 Infectious Disease History: No Infectious Disease History: Denies: Hx Hepatitis, Hx Human Immunodeficiency Virus (HIV), Traveled Outside the [place] in Last 30 Days - Family History Known Family History: Positive: Hypertension Negative: Diabetes - Social History Alcohol Use: None Hx Substance Use: No Substance Use Type: Reports: None Hx Tobacco Use: No Smoking Status (MU): Never Smoked Tobacco Review of Systems Negative: Fever Positive: Other - Chest discomfort Positive: Shortness Of Breath. Negative: Cough Neurological/Mental Status: Negative - Dizziness, lightheadedness Negative: Syncope All Other Systems Reviewed And Are Negative: Yes Physical Exam - Summary Physical Exam Summary: Appearance: Well-appearing, Well-nourished, lying in bed comfortably Skin: Warm, dry, no obvious rash Eyes: sclera anicteric, no conjunctival pallor HENT: mucous membranes moist, pharynx appears normal Neck: Supple, nontender Respiratory: Clear to auscultation, no signs of respiratory distress Cardiovascular: Normal S1, S2. No murmurs. Normal distal pulses in tibial and radial bilaterally. Abdomen: Soft, nontender, normal active bowel sounds present Musculoskeletal: Normal, Strength/ROM Intact Neurological: A&Ox3, awake and alert, mentation is normal, speech is fluent and appropriate Psychiatric: affect is normal, does not appear anxious or depressed Triage Information Reviewed: Yes Vital Signs On Initial Exam: Initial Vitals Temp Pulse Resp BP Pulse Ox 98.8 F 70 18 142/97 98 06/27/19 22:09 06/27/19 22:09 06/27/19 22:09 06/27/19 22:09 06/27/19 22:09 Vital Signs Reviewed: Yes Procedures - Sedation Patient Received Moderate/Deep Sedation with Procedure: No Diagnostics - Vital Signs Vital Signs Temp Pulse Resp BP Pulse Ox 06/27/19 22:09 98.8 F 70 18 142/97 98 - Laboratory Result Diagrams: 06/27/19 23:30 06/27/19 23:30 Lab Statement: Any lab studies that have been ordered have been reviewed, and results considered in the medical decision making process. - Radiology Chest x-ray Radiology Interpretation Completed By: ED Physician Summary of Radiographic Findings: No acute process. ED physician has reviewed and interpreted this report. - EKG 23:38 Cardiac Rate: Bradycardia - 58 BPM EKG Rhythm: Sinus Bradycardia Summary of EKG Findings: Otherwise normal EKG. ED physician has reviewed and interpreted this EKG. Disposition - Course Course Of Treatment: 38 year old M presenting to [facility] with a chief complaint of shortness of breath which he describes as feeling like he cannot catch his breath or take a complete breath since 13:00 this afternoon while playing with his kids outside, worse since laying down for bed. Patient also reports intermittent chest discomfort which he describes as a tightness. Physical exam findings reveal no abnormalities. An EKG reveals sinus bradycardia at 58 BPM, otherwise normal EKG. CXR reveals, per ED physician, no acute process. Laboratory results with no significant abnormalities except for an Hct of 40, MCH of 33, creatinine of 1.20, and glucose of 109. Patient will be discharged with follow up from Dr. Jaffe. The patient is agreeable with this plan. - Diagnoses Provider Diagnoses: Atypical chest pain, Dyspnea Discharge ED - Sign-Out/Discharge Documenting (check all that apply): Patient Departure - Discharge Plan Condition: Good Disposition: HOME Patient Education Materials: Dyspnea (ED) Forms: COVID-19 Eval & Not Tested Referrals: Renae Jaffe NP [Primary Care Provider] - If Needed Additional Instructions: We did not find any evidence of a heart problem causing your symptoms. Your chest xray looks normal as do lab studies. This does not sound like a respiratory infection like COVID so we did not test you for that. Of course if you develop fever and worsening cough you should get tested. - Attestation Statements Document Initiated by Scribe: Yes Documenting Scribe: Radha Monroe Provider For Whom Scribe is Documenting (Include Credential): Andres Solitario MD Scribe Attestation: Radha Tee, scribed for Andres Solitario MD on 06/28/19 at 0101. Status of Scribe Document: Ready
--- OUTSIDE RECORDS SUMMARY | 2019-06-27 23:14 | XMS REPORT | Summary of Care ---
:1980 Author Organization [facility] Address [address] [facility] [address] [address] Care Team Providers Name Role Phone Other Unavailable Unavailable None, [place] Primary Care Provider Unavailable Reason for Visit Reason Comments Follow Up results from egd Encounter Details Date Type Department Care Team Description 05/05/2019 Office Visit Jose Alfredo Meade, Gastroesophageal reflux disease with esophagitis (Primary Dx); Gastroenterology/He Hannah Cassidy NP Family history of eosinophilic esophagitis; patology 1 [facility] Family history of Owen's esophagus [address] [facility] [address] [address] [place] [address] [phone] Allergies Active Allergy Reactions Severity Noted Date Comments Rubus Fruticosus Rash 02/20/2019 eosinophilic esophagitis Lisinopril Respiratory Reaction 02/20/2019 Cough Night-Time Cold-Flu Hives 05/04/2018 Relief Benzonatate-Methylpar Hives 05/04/2018 -Propylpar documented as of this encounter (statuses as of 05/05/2019) Medications Medication Sig Dispensed Refills Start Date End Date Status Mason-3 Fatty Acids Take by 0 Active (FISH OIL BURP-LESS) mouth. 1200 MG Oral Cap Multiple Take by 0 Active Vitamins-Minerals mouth. (MULTIVITAMIN ADULT) Oral Tab amLodipine (NORVASC) Take 1 Tab 90 Tab 3 02/27/2019 Active 10 MG Oral by mouth TabIndications: DAILY. Benign hypertension Omeprazole 40 MG Take 1 Cap 90 Cap 3 05/05/2019 Active Oral CAPSULE DELAYED by mouth RELEASE DAILY. Omeprazole 20 MG Take 1 Tab 0 05/05/2019 Discontinued Oral Tab EC by mouth DAILY. documented as of this encounter (statuses as of 05/05/2019) Active Problems Problem Noted Date [place] RUQ abdominal pain 12/24/2017 Overview: Added automatically from request for surgery [id number] Dyslipidemia 06/03/2015 Benign hypertension 05/06/2015 Hypertension Gastroesophageal reflux disease with esophagitis Overview: 04/25/19 - EGD showing esophagitis. On omeprazole documented as of this encounter (statuses as of 05/05/2019) Immunizations Name Administration Dates Next Due Influenza (IM) Preservative Free 03/19/2019 documented as of this encounter Social History Tobacco Use Types Packs/Day Years Used Date Never Smoker 0 Smokeless Tobacco: Never Used Alcohol Use Drinks/Week oz/Week Comments Yes 0 Standard drinks or equivalent 0.0 extremely rarely - once a year (1-2 beers) Sex Assigned at Date Recorded Not on file Job Start Date Occupation Industry Not on file Not on file Not on file Travel History Travel Start Travel End No recent travel history available. documented as of this encounter Last Filed Vital Signs Vital Sign Reading Time Taken Comments Blood Pressure 141/93 05/05/2019 8:04 AM EST Pulse 65 05/05/2019 8:04 AM EST Temperature - - Respiratory Rate - - Oxygen Saturation 97% 05/05/2019 8:04 AM EST Inhaled Oxygen Concentration - - Weight 109.8 kg (242 lb) 05/05/2019 8:04 AM EST Height 182.9 cm (6') 05/05/2019 8:04 AM EST Body Mass Index 32.82 05/05/2019 8:04 AM EST documented in this encounter Patient Instructions Patient InstructionsHannah Meade NP - 05/05/2019 8:00 AM EST1. Increase Omeprazole to 40mg once daily 2. Continue to be mindful of diet 3. See information below 4. Follow up in 1 month Patient Education Eosinophilic Esophagitis The Basics Written by the doctors and editors at [facility] What is eosinophilic esophagitis?Eosinophilic esophagitis is a condition that affects the esophagus, the tube that carries food from the mouth to the stomach (figure 1). This condition iscalled "EoE" for short. In EoE, the esophagus has cells called "eosinophils" in it. Eosinophils are allergy cells that are not normally found in the esophagus. Doctors don't know for sure what causes EoE. But they think it might be caused by allergies, especially food allergies. EoE sometimes runs in families. It can happen in both children and adults. What are the symptoms of eosinophilic esophagitis?Symptoms can be different, dependingon a person's age. Adults and teens usually have symptoms such as: Trouble swallowing This is the most common symptom. People usually have trouble swallowing solid foods. Some people have pain with swallowing or feel like the food gets stuck in their throat or chest. Chest or upper belly pain Burning in the chest (heartburn) that doesn't get better after taking medicine to treat heartburn Children usually have symptoms such as: Feeding problems, such as refusing to eat solid foods Nausea or vomiting Belly pain Is there a test for eosinophilic esophagitis?Yes. The test done most often to check for this condition is an upper endoscopy. During an upper endoscopy, a doctor (called a medical corps officer) puts a thin tube with a camera andlight on the end into your mouth and down into your esophagus (figure 2). He or she will look at thelining of the esophagus and take small samples of it. Another doctor will then look at the cells under a microscope to see if you have EoE. How is eosinophilic esophagitis treated?Treatment usually involves diet changes and medicines: Diet changes Your doctor might have you avoid foods that could be causing your symptoms.There are 3 main ways to do this. You can: ? Avoid the foods that most commonly cause EoE ? Avoid the foods you are allergic to To figure out the foods you are allergic to, you might need to see an business process lead (allergy doctor) and have tests. ? Go on a special liquid diet and avoid all solid foods To make sure you get the nutrition you need, your doctor might recommend that you work with a dietitian (food expert). After your symptoms improve, you will be able to add foods back into your diet. Medicines Doctors can use different medicines to treat EoE. One is called a "proton pumpinhibitor." This medicine is usually used to treat acid reflux, which is when acid that is normally in the stomach backs up into the esophagus. People with EoE sometimes have acid reflux, but this medicine can treat EoE, too. Other medicines include steroids, which help reduce inflammation. (These are not the same as the steroids some athletes take illegally.) Sometimes, steroids come in a device called an inhaler or a device called a "nebulizer," but you don 't breathe in the steroids the way you normally would with inhaler medicines. Instead, you allow the medicine to accumulate in your mouth and then you swallow. Other times, steroids come as a liquid or pill. In some people, EoE leads to a condition called an esophageal stricture, which is a narrowing of theesophagus. The main treatment for an esophageal stricture in people who do not improve with medicines is a procedure to widen the esophagus, called "dilation." This procedure is done during endoscopy. All topics are updated as new evidence becomes available and our peer review process is complete. This topic retrieved from [employer] on: Jan 31, 2019. Topic 73137 Version 7.0 Release: 27.4.5 - C27.318 [employer]. and/or its affiliates.All rights reserved. figure 1: Upper digestive tract The upper digestive tract includes the esophagus(the tube that connects the mouth to the stomach), the stomach, and the duodenum (the first part of the small intestine). Graphic 91320 Version 6.0 figure 2: Upper endoscopy During an upper endoscopy, you lie down and the doctor puts a thin tube with a camera and light on the end (called an endoscope) into your mouth and down into your esophagus, stomach, and duodenum (thefirst part of your small intestine). The camera sends pictures from inside your body to a televisionscreen. That way , your doctor can see the inside of your esophagus, stomach, and duodenum. Graphic 78633 Version 4.0 Consumer Information Use and Disclaimer This information is not specific medical advice and does not replace information you receive from your health care provider. This is only a brief summary of general information. It does NOT include allinformation about conditions, illnesses, injuries, tests, procedures, treatments, therapies, discharge instructions or life-style choices that may apply to you. You must talk with your health care provider for complete information about your health and treatment options. This information should not beused to decide whether or not to accept your health care provider's advice, instructions or recommendations. Only your health care provider has the knowledge and training to provide advice that is right for you.The use of [employer] content is governed by the [employer] Terms of Use. 2019 [employer]. All rights reserved. Copyright 2019[employer]. and/or its affiliates.All rights reserved. documented in this encounter Progress Notes Hannah Meade NP - 05/05/2019 8:00 AM EST PATIENT: Collins Gillespie : 1980 DATE OF SERVICE: 05/05/2019 REFERRING PRACTITIONER: Self-Referred PRIMARY CARE PROVIDER: None, [place] CHIEF COMPLAINT: Chief Complaint Patient presents with Follow Up results from egd Subjective HISTORY OF PRESENT ILLNESS: Collins Gillespie is a 38-y.o. male who presents for a consultation for evaluation of gastroesophagealreflux disease. Onset was problem is longstanding, this episode began several months ago. Symptoms have been controlled since. Diagnosed previously: yes; a few years by EGD in the [facility] after he has a food impaction of the esophagus. At that time he was told he has EoE and was referred to an business process lead, he was only found to have one suspected allergy. Symptoms include: heartburn and upper abdominal discomfort in the evenings approx 50% of the time. He denies dysphagia. He has not lost weight. He denies melena, hematochezia, hematemesis, and coffee ground emesis. Aggravated by: large meals Alleviated by: proton pump inhibitors Associated signs and symptoms: none Evaluation to date: 03/2019 EGD positive for esophagitis, EoE vs reflux esophagitis on biopsy. Also of note food residue in gastric antrum Medical therapy in the past has included proton pump inhibitors. The patient denies: dysphagia, dynophagia, weight loss, bleeding, oropharynx esophageal manifestation symptoms. Past Medical History: Diagnosis Date Fracture of ankle, open ORIF 1999 Gastroesophageal reflux disease with esophagitis GERD (gastroesophageal reflux disease) Hernia of abdominal cavity Hyperlipidemia Hypertension Past Surgical History: Procedure Laterality Date LAPAROSCOPIC CHOLECYSTECTOMY N/A 01/27/2018 Procedure: LAPAROSCOPIC CHOLECYSTECTOMY; Surgeon: Ronnie Caputo MD; Location : [facility] OR; Laterality: N/A; OTHER REPAIR OF ANKLE Left 1999 Family History Problem Relation Age of Onset Arthritis Mother Hypertension Mother Hypertension Father No Known Problems Brother No Known Problems Brother Cancer Other uncle w/ liver cancer Cancer Maternal Grandmother breast No Known Problems Maternal Grandfather Emphysema Paternal Grandmother COPD Paternal Grandmother Psychiatry Paternal Grandfather suicide Current Outpatient Medications Medication Sig amLodipine (NORVASC) 10 MG Oral Tab Take 1 Tab by mouth DAILY. Multiple Vitamins-Minerals (MULTIVITAMIN ADULT) Oral Tab Take by mouth. Mason-3 Fatty Acids (FISH OIL BURP-LESS) 1200 MG Oral Cap Take by mouth. Omeprazole 40 MG Oral CAPSULE DELAYED RELEASE Take 1 Cap by mouth DAILY. No current facility-administered medications for this visit. Allergies Allergen Reactions Blackberry [Rubus Fruticosus] Rash eosinophilic esophagitis Lisinopril Respiratory Reaction Cough Nyquil Cold & [Night-Time Cold-Flu Relief] Hives Tessalon Perles [[id number]] Hives Social History Socioeconomic History Marital status: Spouse name: Not on file Number of children: Not on file Years of education: Not on file Highest education level: Not on file Occupational History Not on file Social Needs Financial resource strain: Not on file Food insecurity Worry: Not on file Inability: Not on file Transportation needs Medical: Not on file Non-medical: Not on file Tobacco Use Smoking status: Never Smoker Smokeless tobacco: Never Used Substance and Sexual Activity Alcohol use: Yes Alcohol/week: 0.0 standard drinks Comment: extremely rarely - once a year (1-2 beers) Drug use: No Sexual activity: Yes Partners: Female control/protection: Condom, Pill Lifestyle Physical activity Days per week: Not on file Minutes per session: Not on file Stress: Not on file Relationships Social connections Talks on phone: Not on file Gets together: Not on file Attends mormonism service: Not on file Active member of club or organization: Not on file Attends meetings of clubs or organizations: Not on file Relationship status: Not on file Intimate partner violence Fear of current or ex partner: Not on file Emotionally abused: Not on file Physically abused: Not on file Forced sexual activity: Not on file Other Topics Concern Back Care Not Asked Bike Helmet Not Asked Blood Transfusions Not Asked Caffeine Concern Not Asked Exercise Not Asked Hobby Hazards Not Asked International Travel Not Asked Service Not Asked Occupational Exposure Not Asked Seat Belt Not Asked Self-Exams Not Asked Sleep Concern Not Asked Special Diet Not Asked Stress Concern Not Asked Weight Concern Not Asked Social History Narrative . Works at [email or web address] First child due August 2019. REVIEW OF SYSTEMS: All remaining review of systems was negative except for as noted in the history of present illness/subjective. Objective PHYSICAL EXAMINATION: VITALS: BP (!) 141/93 (BP Location: Left arm, Patient Position: Sitting) | Pulse 65 | Ht 6' (1.829 m) | Wt 242 lb (109.8 kg) | SpO2 97% | BMI 32.82 kg/ m Body mass index is 32.82 kg/m. GENERAL: alert, oriented, no acute distress. HEENT: No scleral icterus, MMM Psych: Affect normal Neck: no lymphadenopathy LUNGS: clear to auscultation bilaterally. HEART: regular rhythm, no murmurs, no gallops, no rubs. ABDOMEN: general exam: soft, non-tender, non-distended, without masses or organomegaly, normal active bowel sounds, Nassar's sign negative. Extrmities: no edema Skin: clear Neuro: gait normal, a&o x 3 RECTAL: exam deferred. IMPRESSION: ICD-9-CM ICD-10-CM 1. Gastroesophageal reflux disease with esophagitis 530.11 K21.0 2. Family history of eosinophilic esophagitis V18.59 Z83.79 3. Family history of Owen's esophagus V18.59 Z83.79 May need a GES if he continues to have evening symptoms. Plan PLAN: Nonpharmacologic treatments were discussed including: eating smaller meals, elevation of the head of bed at night, avoidance of caffeine, chocolate, nicotine and peppermint, avoiding tight fitting clothing. Patient Instructions 1. Increase Omeprazole to 40mg once daily 2. Continue to be mindful of diet 3. See information below 4. Follow up in 1 month Patient Education Eosinophilic Esophagitis The Basics Written by the doctors and editors at [facility] What is eosinophilic esophagitis?Eosinophilic esophagitis is a condition that affects the esophagus, the tube that carries food from the mouth to the stomach (figure 1). This condition iscalled "EoE" for short. In EoE, the esophagus has cells called "eosinophils" in it. Eosinophils are allergy cells that are not normally found in the esophagus. Doctors don't know for sure what causes EoE. But they think it might be caused by allergies, especially food allergies. EoE sometimes runs in families. It can happen in both children and adults. What are the symptoms of eosinophilic esophagitis?Symptoms can be different, dependingon a person's age. Adults and teens usually have symptoms such as: Trouble swallowing This is the most common symptom. People usually have trouble swallowing solid foods. Some people have pain with swallowing or feel like the food gets stuck in their throat or chest. Chest or upper belly pain Burning in the chest (heartburn) that doesn't get better after taking medicine to treat heartburn Children usually have symptoms such as: Feeding problems, such as refusing to eat solid foods Nausea or vomiting Belly pain Is there a test for eosinophilic esophagitis?Yes. The test done most often to check for this condition is an upper endoscopy. During an upper endoscopy, a doctor (called a medical corps officer) puts a thin tube with a camera andlight on the end into your mouth and down into your esophagus (figure 2). He or she will look at thelining of the esophagus and take small samples of it. Another doctor will then look at the cells under a microscope to see if you have EoE. How is eosinophilic esophagitis treated?Treatment usually involves diet changes and medicines: Diet changes Your doctor might have you avoid foods that could be causing your symptoms.There are 3 main ways to do this. You can: ? Avoid the foods that most commonly cause EoE ? Avoid the foods you are allergic to To figure out the foods you are allergic to, you might need to see an business process lead (allergy doctor) and have tests. ? Go on a special liquid diet and avoid all solid foods To make sure you get the nutrition you need, your doctor might recommend that you work with a dietitian (food expert). After your symptoms improve, you will be able to add foods back into your diet. Medicines Doctors can use different medicines to treat EoE. One is called a "proton pumpinhibitor." This medicine is usually used to treat acid reflux, which is when acid that is normally in the stomach backs up into the esophagus. People with EoE sometimes have acid reflux, but this medicine can treat EoE, too. Other medicines include steroids, which help reduce inflammation. (These are not the same as the steroids some athletes take illegally.) Sometimes, steroids come in a device called an inhaler or a device called a "nebulizer," but you don 't breathe in the steroids the way you normally would with inhaler medicines. Instead, you allow the medicine to accumulate in your mouth and then you swallow. Other times, steroids come as a liquid or pill. In some people, EoE leads to a condition called an esophageal stricture, which is a narrowing of theesophagus. The main treatment for an esophageal stricture in people who do not improve with medicines is a procedure to widen the esophagus, called "dilation." This procedure is done during endoscopy. All topics are updated as new evidence becomes available and our peer review process is complete. This topic retrieved from [employer] on: Jan 31, 2019. Topic 16155 Version 7.0 Release: 27.4.5 - C27.318 [employer] and/or its affiliates.All rights reserved. figure 1: Upper digestive tract The upper digestive tract includes the esophagus(the tube that connects the mouth to the stomach), the stomach, and the duodenum (the first part of the small intestine). Graphic 11826 Version 6.0 figure 2: Upper endoscopy During an upper endoscopy, you lie down and the doctor puts a thin tube with a camera and light on the end (called an endoscope) into your mouth and down into your esophagus, stomach, and duodenum (thefirst part of your small intestine). The camera sends pictures from inside your body to a televisionscreen. That way , your doctor can see the inside of your esophagus, stomach, and duodenum. Graphic 71705 Version 4.0 Consumer Information Use and Disclaimer This information is not specific medical advice and does not replace information you receive from your health care provider. This is only a brief summary of general information. It does NOT include allinformation about conditions, illnesses, injuries, tests, procedures, treatments, therapies, discharge instructions or life-style choices that may apply to you. You must talk with your health care provider for complete information about your health and treatment options. This information should not beused to decide whether or not to accept your health care provider's advice, instructions or recommendations. Only your health care provider has the knowledge and training to provide advice that is right for you.The use of [employer] content is governed by the [employer] Terms of Use. 2019 [employer]. All rights reserved. Copyright 2019[employer], Inc. and/or its affiliates.All rights reserved. Author: Hannah Meade NP 05/05/2019 08:36 documented in this encounter Plan of Treatment Date Type Specialty Care Team Description 05/24/2019 Lab Internal Medicine 06/05/2019 Office Visit Gastroenterology Hannah Meade NP [address] [address] [phone] 07/31/2019 Office Visit Family Practice Radha Taylor NP [address] [place] [address] [phone] Health Maintenance Due Date Last Done Comments DTaP/Tdap/Td Vaccines (1 - Tdap) 09/18/1991 DEPRESSION SCREENING 12/29/2019 12/28/2018 INFLUENZA VACCINE Completed 03/19/2019 HEPATITIS A IMMUNIZATION SERIES Aged Out No longer eligible based on patient's age to complete this topic HPV IMMUNIZATION SERIES Aged Out No longer eligible based on patient's age to complete this topic MENINGOCOCCAL VACCINE IMM Aged Out No longer eligible based on patient's age to complete this topic PNEUMOCOCCAL 0-64 YRS Aged Out No longer eligible based on patient's age to complete this topic documented as of this encounter Goals Goal Patient Goal Associated Recent Patient-Stated? Author Type Problems Progress Blood Pressure Blood Pressure 141/93 No Alannah, < 140/90 (05/05/2019 DANETTE Macdonald 8:04 AM EST) Note: This is an individualized treatment (blood pressure) goal for Collins Gillespie: Displayed above (on the left) is your goal for blood pressure control. Your most recent blood pressure is also shown above, on the right. You should try to achieve blood pressures that are lower than your goal listed above (on the left). Weight loss vs. 18 mo Lifestyle 0 (05/05/2019 8:04 AM No Renae Jaffe FNP max (lbs) >= 10 EST) Note: This is an individualized lifestyle goal for Collins Gillespie: Your body mass index (BMI) is more than 30. You should lose weight. A reasonable starting goal is to lose 10 pounds. Displayed above is how many pounds you have lost thus far towards your 10 pound weight loss goal. Take all prescribed medications as Self-management No Renae Jaffe FNP directed Note: This is an individualized self-management goal for Collins Gillespie: Please take all prescribed medications as directed. 1. Do not skip doses. If you cannot afford your medications, talk with your doctor. 2. Use a pill reminder system such as a pill box if needed. Your pharmacist can help you with this. 3. Contact your Pharmacy 5 days before your medication runs out. If you cannot take your medications for any reasons, talk with your doctor. 4. Please bring all of your medication bottles and inhalers (or a list of all your medications/inhalers) with you to every visit. Potential barriers to meeting all of your care plan goals will continue to be addressed on an ongoing basis. documented as of this encounter Results Not on filedocumented in this encounter Visit Diagnoses Diagnosis Gastroesophageal reflux disease with esophagitis Family history of eosinophilic esophagitis Family history of Owen's esophagus documented in this encounter Additional Health Concerns Infection Noted Time Resolved Time C Diff 04/11/2018 9:53 PM EST documented as of this encounter Insurance Payer Benefit Plan / Subscriber ID Effective Dates Phone Address Type Group [employer]MA [employer]ES xxxxxxxxxxxx 2017-Present Irma GRAYSON (Home) [place], [place] [phone] [id number] (Work) documented as of this encounter
[2019-06-27 23:43] LABS: ABS Basophils 0.1 10^3/ul (0-0.2); ABS Eosinophils 0.2 10^3/ul (0-0.6); ABS Lymphocytes 1.7 10^3/ul (1.0-4.8); ABS Monocytes 0.7 10^3/ul (0-0.8); ABS Neutrophils 7.7 10^3/ul (1.5-7.7); Eosinophil % 1.6 %; Hematocrit 40 % (42-52); Hemoglobin 14.5 g/dL (14.0-18.0); Lymphocyte % 16.6 %; Mean Corpuscular HGB Conc 36 g/dL (31-36); Mean Corpuscular Hemoglobin 33 pg (27-31); Mean Corpuscular Volume 91 fL (80-94); Platelet Count 203 10^3/uL (150-450); Red Blood Count 4.43 10^6 /uL (4.18-5.48); Red Cell Distribution Width 13 % (10-15); White Blood Count 10.5 10^3/uL (3.5-10.8)
[2019-06-28] LABS: Albumin 4.4 g/dL (3.2-5.2); Albumin/Globulin Ratio 1.7 (1-3); BUN/Creatinine Ratio 11.7 (8-20); Calcium 9.3 mg/dL (8.6-10.3); EGFR Non-African American 67.8 (>60); Globulin 2.6 g/dL (2-4); Total Bilirubin 0.8 mg/dL (0.2-1.0)
[2019-06-28 00:02] LABS: Troponin I 0.01 ng/mL (<0.03)
[2019-06-28 01:16] VITALS: BP 131/85
== END 2019-06-28 02:05 | disposition home or self-care (01) ==
LOC: ED 21:51
DX: R07.89 Other chest pain (principal); R06.02 Shortness of breath; I10 Essential (primary) hypertension; R06.00 Dyspnea, unspecified
CPT/HCPCS: 36415; 71045; 80053; 84484; 85025; 93005; 99283

== ENCOUNTER 2019-11-07 17:32 | Observation (INO) ==
[2019-11-07] MEDS: NS 0.9% 1000 ml BAG 1,000 ML IV ONE ×2 (19:27→20:23)
[2019-11-07 19:54] LABS: ABS Eosinophils 0.1 10^3/ul (0-0.6); ABS Neutrophils 11.1 10^3/ul (1.5-7.7); Eosinophil % 0.8 %; Hematocrit 50 % (42-52); Hemoglobin 17.8 g/dL (14.0-18.0); Lymphocyte % 7.5 %; Mean Corpuscular HGB Conc 35 g/dL (31-36); Mean Corpuscular Hemoglobin 33 pg (27-31); Mean Corpuscular Volume 93 fL (80-94); Mean Platelet Volume 9.9 fL (7.4-10.4); Nucleated Red Blood Cells % 0.3; Platelet Count 281 10^3/uL (150-450); Red Blood Count 5.44 10^6 /uL (4.18-5.48); Red Cell Distribution Width 13 % (10-15); White Blood Count 13.3 10^3/uL (3.5-10.8)
[2019-11-07 19:56] LABS: INR 0.96 (0.82-1.09)
[2019-11-07 20:07] LABS: ALT 51 U/L (7-52); AST 34 U/L (13-39); Albumin 5.5 g/dL (3.2-5.2); Albumin/Globulin Ratio 1.7 (1-3); Alkaline Phosphatase 85 U/L (34-104); Anion Gap 11 mmol/L (2-11); BUN/Creatinine Ratio 9.9 (8-20); Blood Urea Nitrogen 17 mg/dL (6-24); CO2 Carbon Dioxide 24 mmol/L (22-32); Calcium 10.4 mg/dL (8.6-10.3); Chloride 103 mmol/L (101-111); EGFR African American 53.8 (>60); EGFR Non-African American 44.5 (>60); Globulin 3.3 g/dL (2-4); Glucose 142 mg/dL (70-100); Magnesium 2.2 mg/dL (1.9-2.7); Potassium 3.9 mmol/L (3.5-5.0); Sodium 138 mmol/L (135-145); Total Protein 8.8 g/dL (6.4-8.9)
[2019-11-07] MEDS ORDERED: NS 0.9% 1000 ml BAG 1,000 ML IV ONE ×2 (20:16→21:00)
[2019-11-07] MEDS ORDERED: Enoxaparin 100 MG/ML SYR SUBCUT ONE (20:21)
[2019-11-07 20:28] LABS: Alcohol, S < 10 mg/dL (<10)
[2019-11-07 20:42] LABS: TSH Ultra Thyroid Stim Horm 2.16 mcIU/mL (0.34-5.60)
[2019-11-07] MEDS ORDERED: Ondansetron 4 mg VIAL 2 MG/ML 2 ml VIAL IV PRN (21:01)
[2019-11-07] MEDS ORDERED: Al Hydrox/Mg Hydrox/Simet LIQ 30 ML UDC PO PRN (21:01)
[2019-11-07 21:20] LABS: Amylase 48 U/L (29-103)
[2019-11-07 21:24] LABS: BUN/Creatinine Ratio 11.5 (8-20); Calcium 9.4 mg/dL (8.6-10.3); EGFR African American 60.3 (>60); EGFR Non-African American 49.8 (>60)
[2019-11-07 23:34] LABS: Potassium 4.3 mmol/L (3.5-5.0)
[2019-11-08] MEDS: NS 0.9% 1000 ml BAG 1,000 ML IV SCH ×2 (00:02→06:17)
[2019-11-08 07:14] LABS: Albumin 3.8 g/dL (3.2-5.2); Albumin/Globulin Ratio 1.6 (1-3); BUN/Creatinine Ratio 13.3 (8-20); Calcium 8.6 mg/dL (8.6-10.3); EGFR African American 81.6 (>60); EGFR Non-African American 67.4 (>60); Globulin 2.4 g/dL (2-4); Total Bilirubin 1.3 mg/dL (0.2-1.0); Total Protein 6.2 g/dL (6.4-8.9)
[2019-11-08 07:21] LABS: ABS Eosinophils 0.2 10^3/ul (0-0.6); ABS Lymphocytes 1.4 10^3/ul (1.0-4.8); ABS Monocytes 0.9 10^3/ul (0-0.8); ABS Neutrophils 4.9 10^3/ul (1.5-7.7); Eosinophil % 2.5 %; Hematocrit 39 % (42-52); Hemoglobin 14.1 g/dL (14.0-18.0); Lymphocyte % 18.4 %; Mean Corpuscular HGB Conc 36 g/dL (31-36); Mean Corpuscular Hemoglobin 33 pg (27-31); Mean Corpuscular Volume 92 fL (80-94); Mean Platelet Volume 9.9 fL (7.4-10.4); Platelet Count 181 10^3/uL (150-450); Red Blood Count 4.21 10^6 /uL (4.18-5.48); Red Cell Distribution Width 13 % (10-15); White Blood Count 7.5 10^3/uL (3.5-10.8)
[2019-11-08 08:27] LABS: Urine Appearance Cloudy; Urine Bilirubin Negative (Negative); Urine Blood Negative (Negative); Urine Color Yellow; Urine Glucose Negative (Negative); Urine Ketones Negative (Negative); Urine Nitrite Negative (Negative); Urine Protein Negative (Negative); Urine Urobilinogen Negative (Negative)
[2019-11-08 08:54] LABS: Urine Creatinine Concentration 411.1 mg/dL
[2019-11-08 10:07] LABS: HDL Cholesterol 22.8 mg/dL
[2019-11-08 12:01] VITALS: BP 114/72
== END 2019-11-08 15:15 | disposition home or self-care (01) ==
LOC: MEDTELE 17:32 → ED 17:32 → MEDTELE 11-08 00:08
PROVIDERS: ADMIT Pediatrics; ATTEND Internal Medicine

== ENCOUNTER 2019-11-09 07:06 | Observation (INO) ==
[2019-11-09] MEDS ORDERED: NS 0.9% 1000 ml BAG 1,000 ML IV ONE (07:14)
[2019-11-09] MEDS ORDERED: Ondansetron 4 mg VIAL 2 MG/ML 2 ml VIAL IV ONE (07:14)
[2019-11-09] MEDS ORDERED: Iohexol 300 (CONTRAST) 10 ML SDV IV ONE (07:48)
[2019-11-09 08:07] LABS: ABS Eosinophils 0.1 10^3/ul (0-0.6); ABS Lymphocytes 1.2 10^3/ul (1.0-4.8); ABS Monocytes 0.9 10^3/ul (0-0.8); ABS Neutrophils 6.1 10^3/ul (1.5-7.7); Eosinophil % 1.3 %; Hematocrit 43 % (42-52); Hemoglobin 15.4 g/dL (14.0-18.0); Lymphocyte % 14.3 %; Mean Corpuscular HGB Conc 36 g/dL (31-36); Mean Corpuscular Hemoglobin 33 pg (27-31); Mean Corpuscular Volume 93 fL (80-94); Mean Platelet Volume 9.4 fL (7.4-10.4); Nucleated Red Blood Cells % 0.1; Platelet Count 195 10^3/uL (150-450); Red Blood Count 4.65 10^6 /uL (4.18-5.48); Red Cell Distribution Width 13 % (10-15); White Blood Count 8.3 10^3/uL (3.5-10.8)
[2019-11-09 08:09] LABS: Albumin 4.7 g/dL (3.2-5.2); Albumin/Globulin Ratio 1.6 (1-3); BUN/Creatinine Ratio 10.3 (8-20); Calcium 9.6 mg/dL (8.6-10.3); EGFR African American 77.1 (>60); EGFR Non-African American 63.7 (>60); Globulin 2.9 g/dL (2-4); Potassium 3.9 mmol/L (3.5-5.0); Total Bilirubin 1.2 mg/dL (0.2-1.0); Total Protein 7.6 g/dL (6.4-8.9)
[2019-11-09] MEDS ORDERED: Ondansetron 4 mg VIAL 2 MG/ML 2 ml VIAL IV PRN (15:53)
[2019-11-09] MEDS: NS 0.9% 1000 ml BAG 1,000 ML IV SCH (19:45)
[2019-11-10] MEDS: NS 0.9% 1000 ml BAG 1,000 ML IV SCH ×2 (05:54→15:44)
[2019-11-10 11:52] VITALS: BP 124/78
[2019-11-11 14:22] LABS: Adenovirus F40/41 Negative (Negative); Astrovirus Negative (Negative); Cryptosporidium species Negative (Negative); Cyclospora cayetanensis Negative (Negative); Entamoeba histolytica Negative (Negative); Enteroaggregative E.coli(EAEC) Negative (Negative); Enteropathogenic Ecoli(EPEC) Negative (Negative); Enterotoxigenic Ecoli(ETEC) Positive (Negative); Norovirus GI/GII Negative (Negative); Plesiomonas shigelloides Negative (Negative); Salmonella species Negative (Negative); Sapovirus Negative (Negative); Shiga toxin producing E. coli Negative (Negative); Shigella/Enteroinvasive E.coli Negative (Negative); Specimen Source STOOL; Vibrio cholerae Negative (Negative); Yersinia species Negative (Negative)
== END 2019-11-10 17:20 | disposition home or self-care (01) ==
LOC: ED 07:06 → MED 15:53 → OBSVTOIN 15:53 → INTOOBSV 15:53
PROVIDERS: ADMIT Internal Medicine; ATTEND Internal Medicine